=== PATIENT | male | born 1995 | race American Indian/Alaskan Native ===

== ENCOUNTER 2017-11-12 16:41 | Emergency (ER) | payer SELFPAY ==
[2017-11-12 16:49] VITALS: BP 124/75
[2017-11-12] MEDS ORDERED: NACL 0.9% 1000 ML 1,000 ML IV ONE (16:56)
[2017-11-12 17:19] LABS: Basophils % (Auto) 0.3 % (0.0-1.8); Eosinophils % (Auto) 0.4 % (0.0-4.3); Lymphocytes # (Auto) 1.6 K/mm3 (1.2-5.4); Lymphocytes % (Auto) 27.4 % (13.4-35.0); Mean Corpuscular HGB Conc 36 % (32-34); Mean Corpuscular Hemoglobin 32 pg (28-32); Mean Corpuscular Volume 88 fl (84-94); Monocytes # (Auto) 0.4 K/mm3 (0.0-0.8); Monocytes % (Auto) 6.4 % (0.0-7.3); Platelet Count 215 K/mm3 (140-440); Red Blood Count 4.88 M/mm3 (3.65-5.03); Red Cell Distribution Width 13.2 % (13.2-15.2)
[2017-11-12 17:23] LABS: Hematocrit 42.8 % (35.5-45.6); Hemoglobin 15.4 gm/dl (11.8-15.2)
[2017-11-12 17:37] LABS: Alanine Aminotransferase 22 units/L (7-56); Albumin 4.5 g/dL (3.9-5); BUN/Creatinine Ratio 17; Blood Urea Nitrogen 12 mg/dL (9-20); Calcium 9.6 mg/dL (8.4-10.2); Hemolysis Index 14
[2017-11-12] MEDS ORDERED: TORADOL IV ONE (17:37)
[2017-11-12] MEDS ORDERED: NACL 0.9% 500 ML 500 ML IV ONE (17:37)
--- NOTE | 2017-11-12 17:38 | Emergency Department Report ---
<ARIANNA SOARES - Last Filed: 11/12/17 20:04> ED General Adult HPI - General Chief complaint: Abdominal Pain Stated complaint: LFT FLIM PAIN Time Seen by Provider: 11/12/17 17:25 Source: patient, family, RN notes reviewed Mode of arrival: Wheelchair Limitations: No Limitations - History of Present Illness Initial comments: This is a 22-year-old gentleman who is not known to this provider previously, he does not have a primary care doctor and denies chronic medical conditions. He presents to the ER with a complaint of nontraumatic left sided chest wall pain. It has been intermittent for a week. It worsens with palpation, and heavy lifting. He reports doing a lot of heavy lifting at work. He denies headache, and neck pain. While in the waiting room, the patient apparently had an episode of syncope and loss of consciousness this has since resolved. Patient admits to left-sided chest wall pressure. He denies lower abdominal pain as well as extremity weakness, numbness. -: Gradual Location: chest Radiation: non-radiation Quality: aching Consistency: intermittent Improves with: rest Worsens with: movement Associated Symptoms: chest pain, malaise, seizure, syncope, weakness. denies: confusion, cough, diaphoresis, fever/chills, headaches, loss of appetite, nausea /vomiting, rash, shortness of breath - Related Data Previous Rx's Medication Instructions Recorded Last Taken Type Acetaminophen [Tylenol Arthritis] 650 mg PO Q6HR PRN #30 tablet.er 11/12/17 Unknown Rx Ibuprofen [Motrin] 600 mg PO Q8H PRN #30 tablet 11/12/17 Unknown Rx Allergies Allergy/AdvReac Type Severity Reaction Status Date / Time No Known Allergies Allergy Unverified 11/12/17 16:49 ED Review of Systems ROS: Stated complaint: LFT FLIM PAIN Other details as noted in HPI Constitutional: malaise, weakness. denies: fever Eyes: denies: eye discharge ENT: denies: epistaxis Respiratory: denies: cough Cardiovascular: chest pain, syncope Gastrointestinal: denies: abdominal pain Genitourinary: denies: dysuria Musculoskeletal: back pain Skin: denies: lesions Neurological: weakness Psychiatric: anxiety ED Past Medical Hx - Past Medical History Previous Medical History?: No - Surgical History Past Surgical History?: No - Social History Smoking Status: Never Smoker Substance Use Type: None - Medications Home Medications: Home Medications Medication Instructions Recorded Confirmed Last Taken Type Acetaminophen [Tylenol Arthritis] 650 mg PO Q6HR PRN #30 tablet.er 11/12/17 Unknown Rx Ibuprofen [Motrin] 600 mg PO Q8H PRN #30 tablet 11/12/17 Unknown Rx ED Physical Exam - General Limitations: No Limitations General appearance: alert, in no apparent distress - Head Head exam: Present: atraumatic, normocephalic - Eye Eye exam: Present: normal appearance, PERRL, EOMI, other (visual acuity intact to finger counting, color perception, reading at a close distance). Absent: nystagmus - ENT ENT exam: Present: normal exam, normal orophraynx, mucous membranes moist, normal external ear exam - Neck Neck exam: Present: normal inspection, full ROM. Absent: tenderness, meningismus - Respiratory Respiratory exam: Present: normal lung sounds bilaterally, chest wall tenderness. Absent: respiratory distress - Cardiovascular Cardiovascular Exam: Present: regular rate, normal rhythm, normal heart sounds. Absent: bradycardia, tachycardia, irregular rhythm, systolic murmur, diastolic murmur, rubs, gallop - GI/Abdominal GI/Abdominal exam: Present: soft, normal bowel sounds. Absent: distended, tenderness, guarding, rebound, rigid, pulsatile mass - Rectal Rectal exam: Present: deferred - Extremities Exam Extremities exam: Present: normal inspection, full ROM, normal capillary refill , other (2+ pulses noted in the bilateral upper, lower extremities. Compartments soft. No long bony tenderness. The pelvis is stable.). Absent: tenderness, pedal edema, joint swelling, calf tenderness - Back Exam Back exam: Present: normal inspection, full ROM. Absent: tenderness, CVA tenderness (R), paraspinal tenderness, vertebral tenderness - Neurological Exam Neurological exam: Present: alert, oriented X3, CN II-XII intact, other ( Extraocular movements intact. Tongue midline. No facial droop. Facial sensation intact to light touch in the V1, V2, V3 distribution bilaterally. 5 and 5 strength in 4 extremities.. Sensation is intact to light touch in 4 extremities.). Absent: motor sensory deficit - Psychiatric Psychiatric exam: Present: normal affect, normal mood - Skin Skin exam: Present: warm, dry, intact, normal color. Absent: rash ED Course Vital Signs 11/12/17 16:43 Temperature 36.8 C Pulse Rate 77 Respiratory 16 Rate Blood Pressure 124/75 O2 Sat by Pulse 100 Oximetry - Reevaluation(s) Reevaluation #1: 11/12/17 18:48 Differential diagnosis, including not limited to: Regular been, orthostasis, pulmonary embolus, structural cardiac disease, aortic disease Assessment and plan: 22-year-old gentleman with left-sided pain and subsequent syncope in the waiting room. He is afebrile with reassuring vital signs, clinically sober this time, has a [place] Coma Scale of 15, with an NIH score of 0. His orthostatic vital signs were negative and his physical examination is unremarkable. He had a negative noncontrast CT scan of the brain. CT scan of the chest, abdomen, pelvis is pending at this time. His laboratory studies are equally unremarkable. Reevaluation #2: 11/12/17 20:[address] angiogram of the chest shows no dissection or pulmonary embolus. Incidental cardiomegaly is noted. EKG #2 and 3 show biphasic inverted T-wave in V2 and high left ventricular voltage, otherwise unchanged. The patient is walking with a steady gait and feels "fine." Patient low risk by heart score, PRINCE score. Care is transferred to the overnight physician, Dr. Storey, to follow up on CT angiogram of the abdomen and pelvis, and troponins 1 and 2. If negative, would discharge patient to follow up with outpatient cardiology. ED Medical Decision Making - Lab Data Result diagrams: 11/12/17 17:06 11/12/17 17:06 Vital Signs 11/12/17 16:43 Temperature 98.2 F Pulse Rate 77 Respiratory 16 Rate Blood Pressure 124/75 O2 Sat by Pulse 100 Oximetry Labs 11/12/17 11/12/17 11/12/17 16:52 17:06 17:06 WBC 5.9 RBC 4.88 Hgb 15.4 H Hct 42.8 MCV 88 MCH 32 MCHC 36 H RDW 13.2 Plt Count 215 Lymph % (Auto) 27.4 [place] % (Auto) 6.4 Eos % (Auto) 0.4 Baso % (Auto) 0.3 Lymph # 1.6 [place] # 0.4 Eos # 0.0 Baso # 0.0 Seg Neutrophils % 65.5 Seg Neutrophils # 3.9 Sodium 141 Potassium 4.1 Chloride 103.5 Carbon Dioxide 24 Anion Gap 18 BUN 12 Creatinine 0.7 L Estimated GFR > 60 BUN/Creatinine Ratio 17 Glucose 96 POC Glucose 81 Calcium 9.6 Total Bilirubin 0.40 AST 22 ALT 22 Alkaline Phosphatase 77 Total Protein 7.4 Albumin 4.5 Albumin/Globulin Ratio 1.6 - EKG Data -: EKG Interpreted by Me Rate: bradycardia - EKG Data When compared to previous EKG there are: previous EKG unavailable 11/12/17 18:49 Sinus bradycardia, 52 bpm, normal axis, normal intervals, high left ventricular voltage, not a stemi - Radiology Data Radiology results: report reviewed, image reviewed Noncontrast CT scan of the brain is negative Critical care attestation.: If time is entered above; I have spent that time in minutes in the direct care of this critically ill patient, excluding procedure time. ED Disposition Clinical Impression: History of syncope Disposition: - TO HOME OR SELFCARE Is pt being admited?: No Does the pt Need Aspirin: No Condition: Good Instructions: Syncope (ED) Additional Instructions: Do not drive or operate motor vehicles for the next 6 months. Follow up with any of the listed cardiology groups within the next 3-5 days. Return to the ER right away with new pain, worsened pain, migration of pain, nausea or vomiting, confusion, change in mental status, inability to tolerate liquid feeds, Recurrent loss of consciousness Prescriptions: Acetaminophen [Tylenol Arthritis] 650 mg PO Q6HR PRN #30 tablet.er PRN Reason: Pain Ibuprofen [Motrin] 600 mg PO Q8H PRN #30 tablet PRN Reason: Pain Referrals: PRIMARY CARE, [Primary Care Provider] - 3-5 Days [facility] [Provider Group] - 3-5 Days [facility] [Provider Group] - 3-5 Days Forms: Work/School Release Form(ED) <CRISTIANE STOREY - Last Filed: 11/12/17 21:25> ED Medical Decision Making - Lab Data Result diagrams: 11/12/17 17:06 11/12/17 17:06 ED Disposition Time of Disposition: 21:25
--- NOTE | 2017-11-12 18:32 | Cat Scan Report ---
FINAL REPORT EXAM: CT HEAD/BRAIN WO CON HISTORY: syncope TECHNIQUE: 2.5 millimeter axial images from the skullbase to the vertex. Comparison: None FINDINGS: There is no evidence of an acute intracranial process, intracranial hemorrhage or mass effect. The ventricles are normal size. The visualized portions of the orbits, paranasal and mastoid sinuses are unremarkable. There is no evidence of fracture. IMPRESSION: 1. No evidence of an acute intracranial process, intracranial hemorrhage or mass effect.
[2017-11-12 19:03] LABS: Bilirubin,Urine NEG (Negative); Blood,Urine NEG (Negative); Color,Urine Yellow (Yellow); Mucus,Urine 2+ /HPF
[2017-11-12 19:10] LABS: Amphetamine Screen,Urine PRESUMPTIVE NEGATIVE; Benzodiazepines Screen,Urine PRESUMPTIVE NEGATIVE; Cannabinoid Screen,Urine PRESUMPTIVE NEGATIVE; Cocaine Screen,Urine PRESUMPTIVE NEGATIVE; Methadone Screen,Urine PRESUMPTIVE NEGATIVE; Opiate Screen,Urine PRESUMPTIVE NEGATIVE
--- NOTE | 2017-11-12 19:17 | Cat Scan Report ---
FINAL REPORT EXAM: CT ANGIO CHEST HISTORY: cp syncope TECHNIQUE: Following IV administration of 100 cc of Omnipaque 350 axial helical imaging was performed through the chest with sagittal and coronal reformatted images obtained and maximum intensity projection images obtained. Comparison: None FINDINGS: There is no evidence of infiltrate, pneumothorax or pleural fluid collection. The trachea and bronchi are patent. Heart appears to be enlarged. The thoracic aorta is normal caliber and without evidence of dissection. There is no evidence of intrathoracic adenopathy. No filling defects are demonstrated within the pulmonary arteries to suggest the presence of pulmonary artery emboli. The visualized portion the upper abdomen is unremarkable. The bony structures are unremarkable. IMPRESSION: 1. The heart appears to be enlarged. 2. Otherwise normal study.
--- NOTE | 2017-11-12 21:24 | Emergency Department Report ---
Blank Doc - Documentation Documentation: 22-year-old man received in transfer of care from Dr. Juwan Martin, with history of syncopal episode at work, with secondary left-sided chest pain, with symptoms extending from the previous week.. Evaluation up to this point has been negative, including negative lab work, head scan, negative CT angiography of the chest, and patient has also had CT of abdomen and pelvis, but reports have not been received, as there have been some difficulties with transmission of images electronically. Findings were discussed with patient, with family in presence, he has been resting comfortably, has no symptoms at this time, and my primary recommendation was that they wait for final report, but offered that patient was currently stable, could be discharged to his recommended care, and that we would contact him if there were any abnormal findings on CT, and he preferred to go home, allowing us to contact. He will be referred to hazardous material technician for further evaluation for his syncopal episode, and will be placed on work limitations, as well as Tylenol or Motrin for discomfort. Patient is to return if he has any significant recurrences.
--- NOTE | 2017-11-12 21:48 | Cat Scan Report ---
FINAL REPORT EXAM: CT ANGIO ABDOMEN PELVIS HISTORY: syncope, back pain TECHNIQUE: Following IV administration of 100 cc of Omnipaque 350 axial helical imaging was performed through the abdomen and pelvis with sagittal and coronal reformatted images and maximum intensity projection images obtained. Additionally delayed axial helical imaging was performed through the abdomen and pelvis. Comparison: CT angiogram chest also performed today FINDINGS: The liver, spleen, pancreas, kidneys and adrenal glands are unremarkable in appearance. The gallbladder is moderately distended and unremarkable in appearance. The bowel is normal caliber. There is no evidence of pneumoperitoneum or free fluid. The appendix is normal caliber. The abdominal aorta is normal caliber. There is normal enhancement of the abdominal aorta and intra-abdominal branches without evidence occlusion, dissection or stenosis. There is no evidence of pathologic intra-abdominal adenopathy by CT size criteria. The urinary bladder is moderately distended and unremarkable in appearance. The prostate gland and seminal vesicles are unremarkable in appearance. The bony structures are normal in appearance. IMPRESSION: 1. Normal study.
== END 2017-11-12 22:24 | disposition home or self-care (01) ==
LOC: ED 16:41
DX: R55 Syncope and collapse (principal); R07.89 Other chest pain
CPT/HCPCS: 36415; 70450; 71275; 74174; 80053; 80307; 81001; 82550; 82962; 83735; 84443; 84484; 85025; 93005; 93010; 96361; 96374; 99284; J1885; J7030; Q9967